=== PATIENT | male | born 1960 | race Caucasian/White ===

== ENCOUNTER → 2018-06-27 | Outpatient (CLI) | payer BC ==
[2018-06-27 08:32] LABS: ABSOLUTE NEUTROPHILS 5.1 thou/uL (1.4-8.2); BASOPHILS 0.8 % (0.0-2.0); EOSINOPHILS 4.5 % (0.0-3.0); HEMATOCRIT 47.4 % (42.0-52.0); HEMOGLOBIN 16.4 gm/dL (14.0-18.0); LYMPHOCYTES 35.2 % (24.0-44.0); MCH 31.8 pg (26.0-34.0); MCHC 34.6 g/dL (28.0-37.0); MONOCYTES 6.9 % (1.0-8.0); PLATELET COUNT 324 thou/uL (150-400); POLYS 52.6 % (36.0-66.0); RBC 5.15 mil/uL (4.50-6.00); RDW 13.5 % (10.5-14.5); WBC 9.7 thou/uL (4.0-11.0)
[2018-06-27 08:54] LABS: ALBUMIN 3.8 g/dL (3.4-5.0); CALCIUM 8.4 mg/dL (8.5-10.1); CREATININE 1.1 mg/dL (0.7-1.3); POTASSIUM 4.5 mmol/L (3.5-5.1); TOTAL BILIRUBIN 0.3 mg/dL (<0.1-1.0); TOTAL PROTEIN 6.9 g/dL (6.4-8.2)
== END ==
LOC: CAT 08:07
PROVIDERS: Internal Medicine Cardiovascular Disease
DX: I48.91 Unspecified atrial fibrillation (principal); M47.814 Spondylosis without myelopathy or radiculopathy, thoracic region

== ENCOUNTER 2018-07-04 06:38 | Observation (INO) | payer BC ==
[2018-07-04] VITALS (10 sets, daily range): BP systolic 106–138; BP diastolic 51–97
[~2018-07-04] VITALS: Ht 175.3 cm; Wt 107.5 kg
--- NOTE | ~2018-07-04 | P ---
[facility] [place] [address] PROCEDURE REPORT Name: AMRIT MARIO Room #: 214-P [facility] M..#: [id number] Admission: 07/04/18 Attend Phys: Ricardo Ramirez MD Discharge: Date of : 64 Report #: [id number] THIS REPORT FOR: //name// CC: Ham Ramirez PREOPERATIVE DIAGNOSIS: Atrial fibrillation. POSTOPERATIVE DIAGNOSIS: Atrial fibrillation. HISTORY: The patient is a 57-year-old male with history of AFib, who has failed antiarrhythmic drugs and is here for an ablation. PROCEDURES PERFORMED: 1. AFib ablation, CPT code 74721. 2. Program stimulation pacing after IV drug infusion, CPT code 98242. 3. 3D mapping EP, CPT code 80266. 4. Intracardiac echo, CPT code 00575. ANESTHESIA: The patient underwent general anesthesia with no anesthesia related complications. DESCRIPTION OF PROCEDURE: The patient underwent informed consent. We discussed the details of the procedure including the risks, which include but not limited to bleeding, vascular damage, cardiac perforation as well as stroke or OH. He understood these risks and is willing to proceed. The patient was brought to the EP laboratory in a fasting and sedated state and prepped and draped in a sterile fashion. In the right femoral vein, I obtained access x 3, placing an 8-Pashto, 9-Pashto and 7-Pashto short sheath using the modified Seldinger technique and then under fluoroscopy, catheters were placed into the heart. Under fluoroscopy, I placed a decapolar catheter easily in the coronary sinus and then placed an ice catheter into the right atrium. Using intracardiac ultrasound, I created a detailed 3D geometry using [employer]. There was evidence of 2 right and 2 left pulmonary veins. Both the left veins were very large. At baseline, the patient was in sinus rhythm with sinus cycle length of 725 milliseconds, GA interval 180 milliseconds, QRS duration 90 milliseconds, QT interval 360 milliseconds. The patient was systemically heparinized, and a transseptal was performed using an SL1 sheath and a [place] needle. I was able to cross my wire into the left atrium, and I placed a wire out the left inferior pulmonary vein. I could not advance my SL1 sheath over into the left atrium. Therefore, I exchanged the SL1 sheath for the cryo sheath, and I was able to advance this into the left atrium. I then placed a Lasso catheter into the left atrium and created a detailed 3D geometry of the left atrium as well as a voltage map which showed activity in all four pulmonary veins. Next, I removed the Lasso catheter from the left atrium and placed the cryoballoon. I started by isolating the left superior pulmonary vein. The left [facility] [address] [place] [address] PROCEDURE REPORT Name: AMRIT MARIO Room #: 214-P [facility] Nate M.RMarybeth#: [id number] Admission: 07/04/18 Attend Phys: Ricardo Ramirez MD Discharge: Date of : 64 Report #: [id number] superior pulmonary vein was quite large and therefore the first freeze and the second freeze got very cold, and I came off after approximately 60 seconds on each freeze. I then pulled back further and performed a third freeze of 4 minutes' duration. The vein isolated within 100 seconds. This vein showed evidence of isolation. I then turned my attention to the left inferior pulmonary vein. Again, this was a large vessel. The balloon would go deep into the vessel. I pulled back and performed a 4-minute freeze. The vein isolated within 80 seconds. I performed a second freeze of 180 seconds. This vein was isolated. I turned attention to the right superior pulmonary vein. While isolating the right-sided veins, phrenic nerve pacing was performed from the decapolar catheter placed in the subclavian/SVC junction. I performed a 4-minute freeze and then a 200-second freeze. The second freeze resulted in isolation of the vein within 30 seconds. I then isolated the right inferior pulmonary vein with a single freeze of 180 seconds. This vein isolated within 30 seconds. At this point, I removed the cryo catheter and placed the Lasso catheter back into the left atrium and created a voltage map which now demonstrated that there was a wide circumferential ablation of the left atrium with isolation of all four pulmonary veins. A basic EP study was then performed. At baseline, AV block was noted at 330 milliseconds. AV juan luis ERP was noted at 280 milliseconds at [address] cycle length. Atrial ERP was noted at 200 milliseconds at a [address] cycle lengths. There were no jumps or echoes. Next, isoproterenol infusion was initiated at 2 mcg per minute. AV block was noted at 270 milliseconds. Atrial ERP was noted at 190 milliseconds to [address] cycle length. Again, there was no inducible SVT nor any atrial fibrillation or atrial flutter. Isoproterenol was discontinued and post-ablation, the patient was in sinus rhythm with sinus cycle length of 530 milliseconds, GA interval 165 milliseconds, QRS duration 90 milliseconds, QT interval 370 milliseconds. Using intracardiac ultrasound, I verified that there was no pericardial effusion. As such, the patient received systemic protamine and once the ACT was within acceptable range, all catheters and sheaths were pulled and hemostasis was obtained. CONCLUSIONS: 1. Successful AFib ablation with isolation of the 4 pulmonary veins. 2. No other inducible arrhythmias on or off isoproterenol. By: 0820 09 Ricardo Ramirez MD /jules
[2018-07-04 07:15] LABS: ABSOLUTE NEUTROPHILS 4.7 thou/uL (1.4-8.2); BASOPHILS 0.5 % (0.0-2.0); EOSINOPHILS 4.7 % (0.0-3.0); HEMATOCRIT 48.9 % (42.0-52.0); HEMOGLOBIN 17.2 gm/dL (14.0-18.0); LYMPHOCYTES 36.8 % (24.0-44.0); MCHC 35.1 g/dL (28.0-37.0); MCV 91.2 fL (80.0-100.0); PLATELET COUNT 336 thou/uL (150-400); RBC 5.37 mil/uL (4.50-6.00); RDW 13.4 % (10.5-14.5)
[2018-07-04] MEDS ORDERED: CYMBALTA60 MG PO (07:18)
[2018-07-04] MEDS ORDERED: LOPRESSOR50 PO (07:19)
[2018-07-04] MEDS ORDERED: SINGULAIR 10 MG10 M1 PO (07:19)
[2018-07-04] MEDS ORDERED: FLECAINIDE ACET50 M1 PO (07:19)
[2018-07-04] MEDS ORDERED: XARELTO20 MG PO (07:20)
[2018-07-04] MEDS ORDERED: FLOMAX0.4 MG PO (07:20)
[2018-07-04] MEDS ORDERED: AMBIEN 5 MG TABL5 M1 PO (07:21)
[2018-07-04] MEDS ORDERED: TRAMADOL 50 MG50 MG PO (07:21)
[2018-07-04 07:23] LABS: CALCIUM 8.8 mg/dL (8.5-10.1); CREATININE 1.1 mg/dL (0.7-1.3); POTASSIUM 4.3 mmol/L (3.5-5.1)
[2018-07-04 07:29] LABS: ALBUMIN 3.8 g/dL (3.4-5.0); TOTAL BILIRUBIN 0.5 mg/dL (<0.1-1.0); TOTAL PROTEIN 7.5 g/dL (6.4-8.2)
--- NOTE | 2018-07-04 14:33 | NUR ---
PT CARE ASSUMED APPROX 1345. RECEIVING PT FROM PACU POST AFIB ABLATION. PT PRESENT IN ROOM PRIOR TO PT ARRIVAL. PT ALERT AND ORIENTED X4. VSS. VERY ANXIOUS ON ARRIVAL D/T BEDREST EXACERBATING HIS CHRONIC BACK PAIN. PACU NURSE CALL [facility] FOR PERMISSION TO TURN PT ON HIS RIGHT SIDE PER PT REQUEST. PACU NURSE TOOK ORDER TO TURN PT AND THEN WENT AND TURNED PT. ONCE PT REPORTED THAT HE WAS COMFORTABLE ANXIETY RESOLVED. RIGHT GROIN POST CATH SITE C/D/I WITHOUT HEMATOMA. RIGHT WRIST POST ART LINE SITE C/D/I. FERGUSON PATENT. PT REPORTS UNDERSTANDING LEG IMMOBILIZATION INSTRUCTIONS ALONG WITH BEDREST ORDERS. DENIES WANTING FOOD AT THIS TIME. LUNCH BOX AT BEDSIDE. WILL D/C FERGUSON AFTER BEDREST.
--- NOTE | 2018-07-04 16:56 | NUR ---
SINCE ARRIVAL PT HAS RETUNRED TO BACK SIDE. RECEIVED HYDROCODONE TO CONTROL BACK PAIN. VSS. RIGHT GROIN POST CATH SITE C/D/I. DENIES CHEST PAIN AND SOA. NO DISTRESS NOTED.
--- NOTE | 2018-07-04 18:53 | NUR ---
URINARY CATH REMOVED WITHOUT ISSUE. GAIT IS STEADY. PT KNOWS TO USE URINAL FOR NEXT VOID TO BE ASSESSED.
[2018-07-05 00:28] VITALS: BP 109/76
[2018-07-05 04:21] VITALS: BP 110/68
--- NOTE | 2018-07-05 06:17 | NUR ---
ASSUMED PT CARE AT 1900. VSS. PT A&0X4. PT RESTED WELL FOR MOST OF THE NIGHT. PT'S CATH SITE HAD SOME DRIED DRAINAGE FROM DAY SHIFT YESTERDAY. DRAINAGE BORDER WAS MARKED WITH A SHARPIE. NO FURTHER DRAINAGE SINCE THEN. PT IS STABLE. COMPLAINED OF CHRONIC BACK PAIN, HYDROCODONE ADMINISTERED. NO FURTHER COMPLAINTS. PT SHOULD D/C TODAY.
[2018-07-05 08:15] VITALS: BP 116/75
[2018-07-05 09:58] VITALS: BP 116/75
== END 2018-07-05 10:56 | disposition home or self-care (01) ==
LOC: CATH 06:38 → 2N 13:55 → ENTRNSPT 07-05 10:45 → EDTRNSPTSTS 07-05 10:47 → 2N 07-05 10:56
PROVIDERS: ADMIT Internal Medicine Cardiovascular Disease
DX: I48.0 Paroxysmal atrial fibrillation (principal); I10 Essential (primary) hypertension; G47.33 Obstructive sleep apnea (adult) (pediatric); E78.5 Hyperlipidemia, unspecified; Z87.891 Personal history of nicotine dependence; Z79.899 Other long term (current) drug therapy
CPT/HCPCS: 62110; 62900; 65020; 65040; 70005